=== PATIENT | female | born 1945 | race Caucasian/White ===

== ENCOUNTER 2022-05-09 03:47 | Outpatient (CLI) | payer MEDICARE, SELFPAY ==
[2022-05-09 10:26] LABS: Abs Immature Grans 0.01 10^3/uL (0.0-0.06); Absolute Basophil Count 0.06 10^3/uL (0.0-0.2); Absolute Eosinophil Count 0.08 10^3/uL (0.0-0.7); Absolute Lymphocyte Count 1.39 10^3/uL (1.2-3.4); Absolute Monocyte Count 0.19 10^3/uL (0.1-0.8); Absolute Neutrophil Count 1.53 10^3/uL (1.2-6.7); Basophils % 1.8; Eosinophils % 2.5; HCT 30.3 % (36.0-46.0); HGB 10.2 g/dL (11.2-15.7); Immature Grans % 0.3; Lymphocytes % 42.6; MCHC 33.7 % (32.0-36.0); MCV 101 fL (80-95); MPV 8.9 fL (8.0-11.0); Monocytes % 5.8; Platelet Count 197 10^3/uL (130-400); RDW 13.4 % (11.7-14.6); RDW-SD 49.8 fL; WBC 3.26 10^3/uL (4.4-10.8)
[2022-05-09 11:15] LABS: ALT 21 U/L (14-59); AST 20 U/L (15-37); Albumin 3.7 g/dL (3.4-5.0); Alkaline Phosphatase 66 U/L (46-116); Anion Gap 4.7 mmol/L (3-11); BUN 18 mg/dL (7-18); Bilirubin, Total 0.3 mg/dL (0.2-1.0); CO2 32.3 mmol/L (21.0-32.0); CREATININE 1.4 mg/dL (0.55-1.02); Calcium 9.8 mg/dL (8.5-10.1); Chloride 102 mmol/L (98-107); Estimated GFR 38.75 (mL/min/1.73m2); Folate > 20.0 ng/mL (8.6-20.0); Glucose 100 mg/dL (74-106); Sodium 139 mmol/L (136-145); Total Protein 7.4 g/dL (6.4-8.2); Vitamin B12 477 pg/mL (193-986)
== END 2022-05-09 03:48 | disposition home or self-care (01) ==
PROVIDERS: Visit Provider Physician Assistant
DX: D32.9 Benign neoplasm of meninges, unspecified (principal)
CPT/HCPCS: 36415; 80053; 82607; 82746; 85025

== ENCOUNTER 2022-08-24 17:14 | Outpatient (CLI) | payer MEDICARE, SELFPAY ==
[2022-08-24 16:12] LABS: Absolute Basophil Count 0.04 10^3/uL (0.0-0.2); Absolute Eosinophil Count 0.06 10^3/uL (0.0-0.7); Absolute Lymphocyte Count 1.55 10^3/uL (1.2-3.4); Absolute Monocyte Count 0.31 10^3/uL (0.1-0.8); Absolute Neutrophil Count 1.25 10^3/uL (1.2-6.7); Basophils % 1.2; Eosinophils % 1.9; HCT 28.5 % (36.0-46.0); HGB 9.5 g/dL (11.2-15.7); Lymphocytes % 48.3; MCH 33.6 pg (27.0-33.0); MCHC 33.3 % (32.0-36.0); MCV 101 fL (80-95); MPV 8.5 fL (8.0-11.0); Monocytes % 9.7; Neutrophils % 38.9; Platelet Count 164 10^3/uL (130-400); RBC 2.83 10^6/uL (3.93-5.22); RDW 14.2 % (11.7-14.6); RDW-SD 52.1 fL; WBC 3.21 10^3/uL (4.4-10.8)
[2022-08-24 16:37] LABS: ALT 25 U/L (14-59); AST 21 U/L (15-37); Albumin 3.4 g/dL (3.4-5.0); Alkaline Phosphatase 61 U/L (46-116); BUN 22 mg/dL (7-18); Bilirubin, Total 0.2 mg/dL (0.2-1.0); CREATININE 1.5 mg/dL (0.55-1.02); Calcium 9.4 mg/dL (8.5-10.1); Chloride 102 mmol/L (98-107); Estimated GFR 35.67 (mL/min/1.73m2); Glucose 94 mg/dL (74-106); Potassium 4.1 mmol/L (3.5-5.1); Sodium 137 mmol/L (136-145)
== END 2022-08-24 17:15 | disposition home or self-care (01) ==
LOC: LBO 17:16
PROVIDERS: Visit Provider Physician Assistant
DX: D32.9 Benign neoplasm of meninges, unspecified (principal)
CPT/HCPCS: 36415; 80053; 85025

== ENCOUNTER 2022-10-19 10:51 | Outpatient (CLI) | payer MEDICARE, SELFPAY ==
[2022-10-19 10:14] LABS: Abs Immature Grans 0.01 10^3/uL (0.0-0.06); Absolute Basophil Count 0.05 10^3/uL (0.0-0.2); Absolute Eosinophil Count 0.07 10^3/uL (0.0-0.7); Absolute Lymphocyte Count 1.39 10^3/uL (1.2-3.4); Absolute Neutrophil Count 1.49 10^3/uL (1.2-6.7); Basophils % 1.5; Eosinophils % 2.1; HCT 30.3 % (36.0-46.0); HGB 10.1 g/dL (11.2-15.7); Immature Grans % 0.3; MCH 33.6 pg (27.0-33.0); MCHC 33.3 % (32.0-36.0); MCV 101 fL (80-95); MPV 8.5 fL (8.0-11.0); Monocytes % 9.1; Platelet Count 155 10^3/uL (130-400); RBC 3.01 10^6/uL (3.93-5.22); RDW 13.6 % (11.7-14.6); RDW-SD 50.6 fL; WBC 3.31 10^3/uL (4.4-10.8)
[2022-10-19 10:34] LABS: ALT 26 U/L (14-59); AST 23 U/L (15-37); Albumin 3.5 g/dL (3.4-5.0); Alkaline Phosphatase 66 U/L (46-116); BUN 14 mg/dL (7-18); Bilirubin, Total 0.4 mg/dL (0.2-1.0); CREATININE 1.3 mg/dL (0.55-1.02); Calcium 9.5 mg/dL (8.5-10.1); Chloride 104 mmol/L (98-107); Estimated GFR 42.35 (mL/min/1.73m2); Glucose 98 mg/dL (74-106); Potassium 3.7 mmol/L (3.5-5.1); Sodium 142 mmol/L (136-145); Total Protein 7.1 g/dL (6.4-8.2)
== END 2022-10-19 10:52 | disposition home or self-care (01) ==
LOC: LBO 10:52
PROVIDERS: Visit Provider Physician Assistant
DX: D32.9 Benign neoplasm of meninges, unspecified (principal)
CPT/HCPCS: 36415; 80053; 85025

== ENCOUNTER 2022-12-14 14:05 | Outpatient (CLI) | payer MEDICARE, SELFPAY ==
[2022-12-14 10:14] LABS: Abs Immature Grans 0.01 10^3/uL (0.0-0.06); Absolute Basophil Count 0.05 10^3/uL (0.0-0.2); Absolute Eosinophil Count 0.04 10^3/uL (0.0-0.7); Absolute Lymphocyte Count 1.39 10^3/uL (1.2-3.4); Absolute Monocyte Count 0.22 10^3/uL (0.1-0.8); Absolute Neutrophil Count 1.38 10^3/uL (1.2-6.7); Basophils % 1.6; Eosinophils % 1.3; HCT 30.7 % (36.0-46.0); HGB 10.3 g/dL (11.2-15.7); Immature Grans % 0.3; MCH 33.7 pg (27.0-33.0); MCHC 33.6 % (32.0-36.0); MCV 100 fL (80-95); MPV 8.9 fL (8.0-11.0); Monocytes % 7.1; Neutrophils % 44.7; Platelet Count 152 10^3/uL (130-400); RBC 3.06 10^6/uL (3.93-5.22); RDW 13.2 % (11.7-14.6); RDW-SD 48.7 fL; WBC 3.09 10^3/uL (4.4-10.8)
[2022-12-14 10:32] LABS: ALT 21 U/L (14-59); AST 22 U/L (15-37); Albumin 3.6 g/dL (3.4-5.0); Alkaline Phosphatase 62 U/L (46-116); Anion Gap 5.6 mmol/L (3-11); BUN 19 mg/dL (7-18); Bilirubin, Total 0.4 mg/dL (0.2-1.0); CO2 32.4 mmol/L (21.0-32.0); CREATININE 1.5 mg/dL (0.55-1.02); Calcium 9.8 mg/dL (8.5-10.1); Chloride 105 mmol/L (98-107); Estimated GFR 35.45 (mL/min/1.73m2); Glucose 98 mg/dL (74-106); Potassium 4.1 mmol/L (3.5-5.1); Sodium 143 mmol/L (136-145); Total Protein 7.2 g/dL (6.4-8.2)
== END 2022-12-14 14:06 | disposition home or self-care (01) ==
LOC: LBO 14:06
PROVIDERS: Visit Provider Physician Assistant
DX: D32.9 Benign neoplasm of meninges, unspecified (principal)
CPT/HCPCS: 36415; 80053; 85025

== ENCOUNTER 2023-02-08 14:00 | Outpatient (CLI) | payer MEDICARE, SELFPAY ==
[2023-02-08 12:25] LABS: Abs Immature Grans 0.01 10^3/uL (0.0-0.06); Absolute Basophil Count 0.05 10^3/uL (0.0-0.2); Absolute Lymphocyte Count 1.27 10^3/uL (1.2-3.4); Absolute Neutrophil Count 1.05 10^3/uL (1.2-6.7); Basophils % 1.9; Eosinophils % 3.7; HGB 9.8 g/dL (11.2-15.7); Immature Grans % 0.4; Lymphocytes % 47.4; MCH 33.6 pg (27.0-33.0); MCHC 32.7 % (32.0-36.0); MCV 103 fL (80-95); MPV 9.1 fL (8.0-11.0); Monocytes % 7.5; Neutrophils % 39.1; Platelet Count 173 10^3/uL (130-400); RBC 2.92 10^6/uL (3.93-5.22); RDW 13.2 % (11.7-14.6); RDW-SD 49.6 fL; WBC 2.68 10^3/uL (4.4-10.8)
[2023-02-08 12:41] LABS: ALT 20 U/L (14-59); AST 18 U/L (15-37); Albumin 3.3 g/dL (3.4-5.0); Alkaline Phosphatase 71 U/L (46-116); Anion Gap 2.5 mmol/L (3-11); BUN 17 mg/dL (7-18); Bilirubin, Total 0.2 mg/dL (0.2-1.0); CO2 32.5 mmol/L (21.0-32.0); CREATININE 1.4 mg/dL (0.55-1.02); Calcium 9.6 mg/dL (8.5-10.1); Chloride 104 mmol/L (98-107); Estimated GFR 38.51 (mL/min/1.73m2); Glucose 106 mg/dL (74-106); Sodium 139 mmol/L (136-145)
== END 2023-02-08 14:01 | disposition home or self-care (01) ==
LOC: LBO 14:00
PROVIDERS: Visit Provider Internal Medicine
DX: D32.9 Benign neoplasm of meninges, unspecified (principal)
CPT/HCPCS: 36415; 80053; 85025

== ENCOUNTER 2023-04-05 13:57 | Outpatient (CLI) | payer MEDICARE, SELFPAY ==
[2023-04-05 10:13] LABS: FREE T4 0.98 ng/dL (0.76-1.46)
[2023-04-05 10:34] LABS: Absolute Basophil Count 0.06 10^3/uL (0.0-0.2); Absolute Eosinophil Count 0.05 10^3/uL (0.0-0.7); Absolute Lymphocyte Count 1.28 10^3/uL (1.2-3.4); Absolute Monocyte Count 0.31 10^3/uL (0.1-0.8); Absolute Neutrophil Count 1.75 10^3/uL (1.2-6.7); Basophils % 1.7; Eosinophils % 1.4; HCT 32.4 % (36.0-46.0); HGB 10.8 g/dL (11.2-15.7); Lymphocytes % 37.1; MCH 33.6 pg (27.0-33.0); MCHC 33.3 % (32.0-36.0); MCV 101 fL (80-95); MPV 9.9 fL (8.0-11.0); Neutrophils % 50.8; Platelet Count 193 10^3/uL (130-400); RBC 3.21 10^6/uL (3.93-5.22); RDW 12.7 % (11.7-14.6); RDW-SD 47.4 fL; WBC 3.45 10^3/uL (4.4-10.8)
[2023-04-05 10:47] LABS: ALT 23 U/L (14-59); AST 24 U/L (15-37); Albumin 3.5 g/dL (3.4-5.0); Alkaline Phosphatase 55 U/L (46-116); Anion Gap 6.7 mmol/L (3-11); BUN 20 mg/dL (7-18); Bilirubin, Total 0.2 mg/dL (0.2-1.0); CO2 32.3 mmol/L (21.0-32.0); CREATININE 1.4 mg/dL (0.55-1.02); Calcium 9.8 mg/dL (8.5-10.1); Chloride 103 mmol/L (98-107); Estimated GFR 38.51 (mL/min/1.73m2); Glucose 91 mg/dL (74-106); Potassium 3.7 mmol/L (3.5-5.1); Sodium 142 mmol/L (136-145); TSH 2.27 uIU/mL (0.36-3.74); Total Protein 7.3 g/dL (6.4-8.2)
== END 2023-04-05 13:58 | disposition home or self-care (01) ==
LOC: LBO 13:57
PROVIDERS: Visit Provider Physician Assistant
DX: D64.9 Anemia, unspecified (principal); D32.9 Benign neoplasm of meninges, unspecified
CPT/HCPCS: 36415; 80053; 84439; 84443; 85025

== ENCOUNTER 2023-05-31 13:14 | Outpatient (CLI) | payer MEDICARE, SELFPAY ==
[2023-05-31 10:39] LABS: Abs Immature Grans 0.01 10^3/uL (0.0-0.06); Absolute Basophil Count 0.05 10^3/uL (0.0-0.2); Absolute Eosinophil Count 0.04 10^3/uL (0.0-0.7); Absolute Lymphocyte Count 1.26 10^3/uL (1.2-3.4); Absolute Monocyte Count 0.23 10^3/uL (0.1-0.8); Absolute Neutrophil Count 1.09 10^3/uL (1.2-6.7); Basophils % 1.9; Eosinophils % 1.5; HCT 31.2 % (36.0-46.0); HGB 10.2 g/dL (11.2-15.7); Immature Grans % 0.4; MCH 32.9 pg (27.0-33.0); MCHC 32.7 % (32.0-36.0); MCV 101 fL (80-95); MPV 8.6 fL (8.0-11.0); Monocytes % 8.6; Neutrophils % 40.6; Platelet Count 139 10^3/uL (130-400); RDW 13.2 % (11.7-14.6); RDW-SD 48.5 fL; WBC 2.68 10^3/uL (4.4-10.8)
[2023-05-31 11:01] LABS: ALT 22 U/L (14-59); AST 20 U/L (15-37); Albumin 3.3 g/dL (3.4-5.0); Alkaline Phosphatase 44 U/L (46-116); Anion Gap 3.4 mmol/L (3-11); BUN 17 mg/dL (7-18); Bilirubin, Total 0.3 mg/dL (0.2-1.0); CO2 32.6 mmol/L (21.0-32.0); CREATININE 1.4 mg/dL (0.55-1.02); Calcium 9.8 mg/dL (8.5-10.1); Chloride 104 mmol/L (98-107); Estimated GFR 38.51 (mL/min/1.73m2); Glucose 97 mg/dL (74-106); Potassium 3.7 mmol/L (3.5-5.1); Sodium 140 mmol/L (136-145); Total Protein 6.7 g/dL (6.4-8.2)
== END 2023-05-31 13:15 | disposition home or self-care (01) ==
LOC: LBO 13:15
PROVIDERS: Visit Provider Physician Assistant
DX: D32.9 Benign neoplasm of meninges, unspecified (principal)
CPT/HCPCS: 36415; 80053; 85025

== ENCOUNTER 2023-07-26 15:11 | Outpatient (CLI) | payer MEDICARE, SELFPAY ==
[2023-07-26 15:17] LABS: Abs Immature Grans 0.01 10^3/uL (0.0-0.06); Absolute Basophil Count 0.04 10^3/uL (0.0-0.2); Absolute Eosinophil Count 0.03 10^3/uL (0.0-0.7); Absolute Lymphocyte Count 1.27 10^3/uL (1.2-3.4); Absolute Monocyte Count 0.34 10^3/uL (0.1-0.8); Absolute Neutrophil Count 1.31 10^3/uL (1.2-6.7); Basophils % 1.3; HCT 30.4 % (36.0-46.0); HGB 9.9 g/dL (11.2-15.7); Immature Grans % 0.3; Lymphocytes % 42.3; MCHC 32.6 % (32.0-36.0); MCV 105 fL (80-95); MPV 8.6 fL (8.0-11.0); Monocytes % 11.3; Neutrophils % 43.8; Platelet Count 148 10^3/uL (130-400); RBC 2.91 10^6/uL (3.93-5.22); RDW 13.5 % (11.7-14.6); RDW-SD 52.5 fL
[2023-07-26 15:36] LABS: ALT 22 U/L (14-59); AST 17 U/L (15-37); Albumin 3.4 g/dL (3.4-5.0); Alkaline Phosphatase 61 U/L (46-116); Anion Gap 6.2 mmol/L (3-11); BUN 24 mg/dL (7-18); Bilirubin, Total 0.2 mg/dL (0.2-1.0); CO2 31.8 mmol/L (21.0-32.0); CREATININE 1.3 mg/dL (0.55-1.02); Calcium 9.3 mg/dL (8.5-10.1); Chloride 103 mmol/L (98-107); Estimated GFR 42.09 (mL/min/1.73m2); Glucose 111 mg/dL (74-106); Potassium 4.1 mmol/L (3.5-5.1); Sodium 141 mmol/L (136-145); Total Protein 6.9 g/dL (6.4-8.2)
== END 2023-07-26 15:12 | disposition home or self-care (01) ==
LOC: LBO 15:11
PROVIDERS: Visit Provider Physician Assistant
DX: D42.0 Neoplasm of uncertain behavior of cerebral meninges (principal)
CPT/HCPCS: 36415; 80053; 85025